=== PATIENT | male | born 1965 | race African-American/Black ===

== ENCOUNTER 2017-07-13 08:35 | Emergency (ER) | payer OTHER ==
[~2017-07-13] VITALS: Ht 167.6 cm; Wt 53.5 kg
--- NOTE | 2017-07-13 09:10 | PHYS DOC ---
General Chief Complaint: FEVER Stated Complaint: FEVER,HEADACHE Time Seen by MD: 08:40 Source: patient Exam Limitations: no limitations Problems: History of Present Illness Initial Comments Patient is a 52-year-old male brought to the ED by his daughter with fever and cough. Patient states for the past 2-3 days she's had high fevers headaches and body aches as well as a dry cough. He states that 3 in the morning his temperature was 103F and he took Motrin that's the last medication he is received. In the emergency department temperature is 100.6 patient states that he's been trying to go to work through the illness but this morning and says daughter insisted that he come in to be evaluated. Cough is described as dry set of mild sore throat no shortness of breath chest pain nausea or vomiting no headache or focal weakness no neck stiffness or rash. Timing/Duration: other Severity: severe Modifying Factors: improves with other Associated Symptoms: fever/chills, headaches Allergies: Coded Allergies: No Known Drug Allergies (Unverified , 07/13/17) Past Medical History Medical History: no pertinent history Surgical History: noncontributory Social History Smoker: non-smoker Alcohol: none Drugs: none Review of Systems Constitutional: see HPI Respiratory: denies cough, denies shortness of breath Cardiovascular: denies chest pain, denies palpitations Gastrointestinal: denies abdominal pain, denies nausea, denies vomiting Musculoskeletal: see HPI Psychiatric/Neurological: headache, denies numbness, denies paresthesia, denies weakness Physical Exam General Appearance: mild distress (ill appearing) Eyes: bilateral eye normal inspection, bilateral eye PERRL, bilateral eye EOMI Ear, Nose, Throat: hearing grossly normal, normal ENT inspection, normal pharynx Neck: non-tender, supple Respiratory: normal breath sounds, no respiratory distress Cardiovascular: normal peripheral pulses, tachycardia Gastrointestinal: non tender, soft Extremities: non-tender, normal inspection 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 I discussed [id number] prescription medications , discussed aggressive hydration and time off work or school. The patient's questions were answered to his satisfaction and he expressed agreement and understanding of treatment plan. Is advised to stop smoking Departure Time of Disposition: 10:11 Disposition: 01 HOME, SELF-CARE Diagnosis: influenza A Condition: STABLE Patient Instructions: Influenza, Adult Additional Instructions: Off work through July 17. Please review the patient education materials given by ED staff. Aggressive hydration with Gatorade or water. [id number]-oqcdbzv Tylenol, ibuprofen, and analgesic throat sprays as needed. Prescription: Tamiflu start that medication as soon as possible today Follow-up with your doctor in 5-7 days if not better. PARMJIT VALENZUELA DO Jul 13, 2017 09:10
[2017-07-13] MEDS ORDERED: ACETAMINOPHEN 500 MG TABLET PO ONE (09:30)
[2017-07-13 10:05] LABS: INFLUENZA A PATIENT POSITIVE (NEGATIVE); INFLUENZA B PATIENT NEGATIVE (NEGATIVE)
[2017-07-13] MEDS ORDERED: OSEL75CA PO (10:10)
[2017-07-13 10:45] VITALS: BP 107/73
== END 2017-07-13 10:25 | disposition home or self-care (01) ==
LOC: ER 08:35
DX: J09.X2 Influenza due to identified novel influenza A virus with other respiratory manifestations (principal)
CPT/HCPCS: 87070; 87804; 87880; 99284

== ENCOUNTER 2018-03-05 15:31 | Observation (INO) | payer OTHER ==
[~2018-03-05] VITALS: Ht 167.6 cm; Wt 55.3 kg
[~2018-03-05 15:31] MED LIST: OSEL75CA PO
[2018-03-05] MEDS ORDERED: ASPIRIN 81 MG TAB.CHEW PO ONE (15:45)
[2018-03-05] MEDS ORDERED: MORPHINE SULFATE 4 MG/ML DISP.SYRIN. IV ONE (16:00)
--- NOTE | 2018-03-05 16:11 | EKG ---
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
[2018-03-05 16:12] LABS: BASO % 0 % (0-3); EOS # 0.1 x10^3/uL (0.0-0.7); EOS % 1 % (0-3); HEMATOCRIT 48.6 % (39.0-53.0); HEMOGLOBIN 16.7 g/dL (13.0-17.5); LYMPH # 1.7 x10^3/uL (1.0-4.8); LYMPH % 19 % (24-48); MEAN CORPUSCULAR HEMOGLOBIN 38 pg (25-35); MEAN CORPUSCULAR HGB CONC 34 g/dL (31-37); MEAN CORPUSCULAR VOLUME 110 fL (79-100); MONO # 0.7 x10^3/uL (0.0-1.1); MONO % 8 % (0-9); NEUT # 6.8 x10^3uL (1.8-7.7); NEUT % 72 % (31-73); PLATELET COUNT 179 x10^3/uL (140-400); RED BLOOD COUNT 4.41 x10^6/uL (4.30-5.70); WHITE BLOOD COUNT 9.3 x10^3/uL (4.0-11.0)
--- NOTE | 2018-03-05 16:28 | RAD ---
Single view of the chest. 03/05/2018 3:38 PM Indication: PORTABLE CHEXT XRAY 1 VIEW for chest pain, heaviness in chest all day Comparison: None Findings: There is no focal consolidation. There is no pleural effusion or pneumothorax. The cardiomediastinal silhouette and pulmonary vasculature are within normal limits. No acute osseous abnormalities are seen. Impression: No evidence of acute cardiopulmonary process. Electronically signed by: Devonte Anne MD (03/05/2018 4:25 PM) [id number]
[2018-03-05 16:30] LABS: ALBUMIN 3.6 g/dL (3.4-5.0); ALBUMIN/GLOBULIN RATIO 0.9 (1.0-1.7); CALCIUM 9.3 mg/dL (8.5-10.1); GFR 95.3; POTASSIUM 3.9 mmol/L (3.5-5.1); TOTAL BILIRUBIN 0.3 mg/dL (0.2-1.0); TOTAL PROTEIN 7.5 g/dL (6.4-8.2)
--- NOTE | 2018-03-05 16:39 | PHYS DOC ---
Past History Past Medical History: No Pertinent History Past Surgical History: Appendectomy Smoking: Cigarettes Alcohol Use: Occasionally Drug Use: None Adult General Chief Complaint Chief Complaint: CHEST PAIN HPI HPI 53-year-old male presents with the 18 hour history of chest discomfort. He states that it feels heavy across his chest and radiates up into his right shoulder and neck. 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 He states he's had a similar episode in the past that was related to anxiety. He had a heart catheterization in 2016 in [place] which was negative. Currently, he states that he's had some nausea and an episode or 2 of diarrhea. All he complains about this time is chest discomfort. He denies fever chills or sweats. No cough or congestion.[] Review of Systems Review of Systems Constitutional: Denies fever or chills [] Eyes: Denies change in visual acuity, redness, or eye pain [] HENT: Denies nasal congestion or sore throat [] Respiratory: Denies cough or shortness of breath [] Cardiovascular: No additional information not addressed in HPI [] GI: Per history of present illness[] : Denies dysuria or hematuria [] Musculoskeletal: Denies back pain or joint pain [] Integument: Denies rash or skin lesions [] Neurologic: Denies headache, focal weakness or sensory changes [] Endocrine: Denies polyuria or polydipsia [] All other systems were reviewed and found to be within normal limits, except as documented in this note. Current Medications Current Medications Current Medications Medications (Trade) Dose Ordered Sig/Roya Start Time Stop Time Status Last Admin Dose Admin Aspirin (Children'S Aspirin) 324 mg 1X ONCE 03/05/18 15:45 03/05/18 15:46 DC 03/05/18 16:26 324 MG Morphine Sulfate (Morphine 4mg Syringe) 4 mg 1X ONCE 03/05/18 16:00 03/05/18 16:01 DC 03/05/18 16:26 4 MG Allergies Allergies Allergies Coded Allergies Type Severity Reaction Last Updated Verified No Known Drug Allergies 07/13/17 No Physical Exam Physical Exam Constitutional: Well developed, well nourished, no acute distress, non-toxic appearance. [] HENT: Normocephalic, atraumatic, bilateral external ears normal, oropharynx moist, no oral exudates, nose normal. [] Eyes: PERRLA, EOMI, conjunctiva normal, no discharge. [] Neck: Normal range of motion, no tenderness, supple, no stridor. [] Cardiovascular:Heart rate regular rhythm, no murmur [] Lungs & Thorax: Bilateral breath sounds clear to auscultation [] Abdomen: Bowel sounds normal, soft, no tenderness, no masses, no pulsatile masses. [] Skin: Warm, dry, no erythema, no rash. [] Back: No tenderness, no CVA tenderness. [] Extremities: No tenderness, no cyanosis, no clubbing, ROM intact, no edema. [] Neurologic: Alert and oriented X 3, normal motor function, normal sensory function, no focal deficits noted. [] Psychologic: Anxious[] Current Patient Data Vital Signs Vital Signs Date Time Temp Pulse Resp B/P (MAP) Pulse Ox O2 Delivery O2 Flow Rate FiO2 03/05/18 16:26 15 98 Room Air 03/05/18 16:10 97.9 81 Lab Results Laboratory Tests Test 03/05/18 15:55 White Blood Count 9.3 x10^3/uL (4.0-11.0) Red Blood Count 4.41 x10^6/uL (4.30-5.70) Hemoglobin 16.7 g/dL (13.0-17.5) Hematocrit 48.6 % (39.0-53.0) Mean Corpuscular Volume 110 fL (79-100) H Mean Corpuscular Hemoglobin 38 pg (25-35) H Mean Corpuscular Hemoglobin Concent 34 g/dL (31-37) Red Cell Distribution Width 13.0 % (11.5-14.5) Platelet Count 179 x10^3/uL (140-400) Neutrophils (%) (Auto) 72 % (31-73) Lymphocytes (%) (Auto) 19 % (24-48) L Monocytes (%) (Auto) 8 % (0-9) Eosinophils (%) (Auto) 1 % (0-3) Basophils (%) (Auto) 0 % (0-3) Neutrophils # (Auto) 6.8 x10^3uL (1.8-7.7) Lymphocytes # (Auto) 1.7 x10^3/uL (1.0-4.8) Monocytes # (Auto) 0.7 x10^3/uL (0.0-1.1) Eosinophils # (Auto) 0.1 x10^3/uL (0.0-0.7) Basophils # (Auto) 0.0 x10^3/uL (0.0-0.2) Sodium Level 137 mmol/L (136-145) Potassium Level 3.9 mmol/L (3.5-5.1) Chloride Level 104 mmol/L (98-107) Carbon Dioxide Level 26 mmol/L (21-32) Anion Gap 7 (6-14) Blood Urea Nitrogen 17 mg/dL (8-26) Creatinine 1.0 mg/dL (0.7-1.3) Estimated GFR (Cockcroft-Gault) 95.3 BUN/Creatinine Ratio 17 (6-20) Glucose Level 105 mg/dL (70-99) H Calcium Level 9.3 mg/dL (8.5-10.1) Total Bilirubin 0.3 mg/dL (0.2-1.0) Aspartate Amino Transferase (AST) 34 U/L (15-37) Alanine Aminotransferase (ALT) 54 U/L (16-63) Alkaline Phosphatase 93 U/L (46-116) Troponin I Quantitative < 0.017 ng/mL (0-0.055) YN-Req-V-Type Natriuretic Peptide 11 pg/mL (0-124) Total Protein 7.5 g/dL (6.4-8.2) Albumin 3.6 g/dL (3.4-5.0) Albumin/Globulin Ratio 0.9 (1.0-1.7) L EKG EKG [EKG: Normal sinus rhythm rate of 80 with some anterior J-point elevation I do not believe this is ST elevation there is no obvious ischemic ST-T changes] Radiology/Procedures Radiology/Procedures [] Impressions: PROCEDURE: CHEST AP ONLY Single view of the chest. 03/05/2018 3:38 PM Indication: PORTABLE CHEXT XRAY 1 VIEW for chest pain, heaviness in chest all day Comparison: None Findings: There is no focal consolidation. There is no pleural effusion or pneumothorax. The cardiomediastinal silhouette and pulmonary vasculature are within normal limits. No acute osseous abnormalities are seen. Impression: No evidence of acute cardiopulmonary process. Course & Med Decision Making Course & Med Decision Making Pertinent Labs and Imaging studies reviewed. (See chart for details) [ED course: Evaluation reveals a 53-year-old anxious male with some concerning symptoms. His initial troponin and EKG are unrevealing. I think he is low risk given his fairly recent negative heart catheter but I do believe he needs to be observed in the hospital to be ruled out.] Dragon Disclaimer Dragon Disclaimer This electronic medical record was generated, in whole or in part, using a voice recognition dictation system. Departure Departure: Impression: Primary Impression: Chest pain Disposition: ADMITTED INPATIENT Admitting Physician: Other (Raissa) Condition: STABLE Referrals: ABRAHAN HONG (PCP) Problem Qualifiers Primary Impression: Chest pain Chest pain type: unspecified Qualified Codes: R07.9 - Chest pain, unspecified KARL DONNELLY DO Mar 05, 2018 16:38
[2018-03-05] MEDS ORDERED: ACETAMINOPHEN 325 MG TABLET PO PRN (16:45)
[2018-03-05] MEDS ORDERED: ONDANSETRON PF 4 MG/2 ML VIAL. IV PRN (16:45)
[2018-03-05] MEDS ORDERED: NITROGLYCERIN SUBLINGUAL 0.4 MG BOTTLE OF 25. SL PRN (16:45)
[2018-03-05 16:49] LABS: PLT ESTIMATE ADEQUATE (ADEQUATE)
--- NOTE | 2018-03-05 17:30 | NUR ---
The patient, WILMAR MCCLAIN, 53 y/o, M admitted by CORETTA VALENZUELA DO, was given written information regarding hospital policies, unit procedures and contact persons. Valuables were checked and left in room. Patient alert and oriented able to make needs known. States he is continuing to have chest discomfort along with numbness to right arm. States he also had nausea today and diarrhea x2 today. This has lasted x18 hours today. Per EKG noted to have ST elevation and per tele strip noted 1-2mm ST elevation. Patient is not diaphoretic but does complain of SOA upon exerction. Next troponin noted for 1932 and 2232.
[2018-03-05] MEDS ORDERED: ASPI-630 PO (17:46)
[2018-03-05 18:17] VITALS: BP 155/95
--- NOTE | 2018-03-05 18:54 | NUR ---
Nitro stat and zofran given at this time. Patient continues to complain of chest discomfort and nausea. States chest discomfort radiates to right arm. Cardiology consulted, awaiting to hear from doctor. Vitals remain stable. Patient states pain is at a 6/10.
[2018-03-05 19:20] VITALS: BP 138/94
[2018-03-05] MEDS ORDERED: HYDROmorphone PF 1 MG/ML DISP.SYRIN IV ONE (19:45)
--- NOTE | 2018-03-05 19:50 | EKG ---
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
[2018-03-05 22:34] VITALS: BP 173/90
[2018-03-05 23:13] VITALS: BP 133/83
[2018-03-06 05:38] VITALS: BP 122/75
[2018-03-06 06:25] LABS: BASO % 1 % (0-3); EOS # 0.1 x10^3/uL (0.0-0.7); EOS % 2 % (0-3); HEMOGLOBIN 16.2 g/dL (13.0-17.5); LYMPH # 2.1 x10^3/uL (1.0-4.8); LYMPH % 32 % (24-48); MEAN CORPUSCULAR HEMOGLOBIN 38 pg (25-35); MEAN CORPUSCULAR HGB CONC 34 g/dL (31-37); MEAN CORPUSCULAR VOLUME 111 fL (79-100); MONO # 0.7 x10^3/uL (0.0-1.1); MONO % 10 % (0-9); NEUT # 3.7 x10^3uL (1.8-7.7); NEUT % 55 % (31-73); PLATELET COUNT 187 x10^3/uL (140-400); RED BLOOD COUNT 4.23 x10^6/uL (4.30-5.70); RED CELL DISTRIBUTION WIDTH 13.4 % (11.5-14.5); WHITE BLOOD COUNT 6.6 x10^3/uL (4.0-11.0)
[2018-03-06 06:30] LABS: CALCIUM 8.8 mg/dL (8.5-10.1); CREATININE 1.2 mg/dL (0.7-1.3); GFR 77.2; POTASSIUM 4.2 mmol/L (3.5-5.1)
[2018-03-06] MEDS ORDERED: METOPROLOL SUCC 24HR ER 25 MG TAB.ER.24H. PO SCH (09:30)
--- NOTE | 2018-03-06 09:31 | PDOC2 ---
CONSULT Date of Admission DATE: 03/06/18 TIME: 09:25 Reason for Consult: cp Problem List Problems Medical Problems: (1) Chest pain Status: Acute History of Present Illness Mr Bettencourt is a 53 year old male who has been generally healthy previously, presenting to the ED for evaluation of chest pain. He reports left to right chest discomfort that radiates to right neck and down right arm to index finger. He describes pressure with sharp shooting pain and electrical like shooting pain down arm to finger. He reports increase with ambulation as well as with movement of right upper extremity and neck, also with laying down. The pain was ongoing for > 3 hours. He is currently pain free. He denies any prior episodes of pain. He denies any associated dyspnea, diaphoresis, Nausea vomiting or palpitations. He does say that as pain was ongoing he felt mildly disorientated. He reports normal exercise and ability to TM for 30min without symptoms. He denies any congestive symptoms, palpitations, lightheadedness or syncope. He does report significant stressors. He denies additional complaints. Past Medical History He denies any significant past medical history and takes no home medications regularly. 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 Current Medications Current Medications Aspirin (Children'S Aspirin) 324 mg 1X ONCE PO Last administered on 03/05/18at 16:26; Start 03/05/18 at 15:45; Stop 03/05/18 at 15:46; Status DC Morphine Sulfate (Morphine 4mg Syringe) 4 mg 1X ONCE IV Last administered on at 16:26; Start 03/05/18 at 16:00; Stop 03/05/18 at 16:01; Status DC Ondansetron HCl (Zofran) 4 mg PRN Q4HRS PRN IV NAUSEA/VOMITING Last administered on 03/05/18at 18:50; Start 03/05/18 at 16:45; Stop 03/06/18 at 16:44 Fentanyl Citrate (Fentanyl 2ml Vial) 50 mcg PRN Q2HR PRN IV PAIN; Start at 16:45; Stop 03/06/18 at 16:44 Acetaminophen (Tylenol) 650 mg PRN Q4HRS PRN PO FEVER; Start 03/05/18 at 16:45 ; Stop 03/06/18 at 16:44 Nitroglycerin (Nitrostat) 0.4 mg PRN Q5MIN PRN SL CHEST PAIN Last administered on 03/05/18at 18:50; Start 03/05/18 at 16:45; Stop 03/06/18 at 16:44 Hydromorphone HCl (Dilaudid) 1 mg 1X ONCE IV Last administered on 03/05/18at 20 :08; Start 03/05/18 at 19:45; Stop 03/05/18 at 19:46; Status DC Active Scripts Active Reported Aspirin 81 Mg Tab.chew 81 Mg PO DAILY Allergies: Coded Allergies: No Known Drug Allergies (Unverified , 07/13/17) Review of System as per HPI or negative General: Alert, Oriented X3, Cooperative, No acute distress HEENT: Atraumatic, EOMI, Mucous membr. moist/pink Lungs: Clear to auscultation, Normal air movement Heart: Regular rate, Normal S1, Normal S2, No murmurs Abdomen: Normal bowel sounds, Soft, No tenderness Extremities: No cyanosis, No edema, Normal pulses Skin: No rashes, No breakdown, No significant lesion Neuro: Normal speech, Strength at 5/5 X4 ext Psych/Mental Status: Mental status NL, Mood NL VITALS Vital Signs Date Time Temp Pulse Resp B/P (MAP) Pulse Ox O2 Delivery O2 Flow Rate FiO2 03/06/18 05:38 98.0 76 20 122/75 (91) 98 Room Air Labs Laboratory Tests Test 03/05/18 15:55 03/05/18 19:30 03/05/18 22:00 03/06/18 05:51 White Blood Count 9.3 x10^3/uL (4.0-11.0) 6.6 x10^3/uL (4.0-11.0) Red Blood Count 4.41 x10^6/uL (4.30-5.70) 4.23 x10^6/uL (4.30-5.70) Hemoglobin 16.7 g/dL (13.0-17.5) 16.2 g/dL (13.0-17.5) Hematocrit 48.6 % (39.0-53.0) 47.0 % (39.0-53.0) Mean Corpuscular Volume 110 fL (79-100) 111 fL (79-100) Mean Corpuscular Hemoglobin 38 pg (25-35) 38 pg (25-35) Mean Corpuscular Hemoglobin Concent 34 g/dL (31-37) 34 g/dL (31-37) Red Cell Distribution Width 13.0 % (11.5-14.5) 13.4 % (11.5-14.5) Platelet Count 179 x10^3/uL (140-400) 187 x10^3/uL (140-400) Neutrophils (%) (Auto) 72 % (31-73) 55 % (31-73) Lymphocytes (%) (Auto) 19 % (24-48) 32 % (24-48) Monocytes (%) (Auto) 8 % (0-9) 10 % (0-9) Eosinophils (%) (Auto) 1 % (0-3) 2 % (0-3) Basophils (%) (Auto) 0 % (0-3) 1 % (0-3) Neutrophils # (Auto) 6.8 x10^3uL (1.8-7.7) 3.7 x10^3uL (1.8-7.7) Lymphocytes # (Auto) 1.7 x10^3/uL (1.0-4.8) 2.1 x10^3/uL (1.0-4.8) Monocytes # (Auto) 0.7 x10^3/uL (0.0-1.1) 0.7 x10^3/uL (0.0-1.1) Eosinophils # (Auto) 0.1 x10^3/uL (0.0-0.7) 0.1 x10^3/uL (0.0-0.7) Basophils # (Auto) 0.0 x10^3/uL (0.0-0.2) 0.0 x10^3/uL (0.0-0.2) Platelet Estimate Adequate (ADEQUATE) Macrocytosis Slight Prothrombin Time 9.9 SEC (9.4-11.4) Prothromb Time International Ratio 1.0 (0.9-1.1) Activated Partial Thromboplast Time 25 SEC (23-33) Sodium Level 137 mmol/L (136-145) 137 mmol/L (136-145) Potassium Level 3.9 mmol/L (3.5-5.1) 4.2 mmol/L (3.5-5.1) Chloride Level 104 mmol/L (98-107) 102 mmol/L (98-107) Carbon Dioxide Level 26 mmol/L (21-32) 32 mmol/L (21-32) Anion Gap 7 (6-14) 3 (6-14) Blood Urea Nitrogen 17 mg/dL (8-26) 13 mg/dL (8-26) Creatinine 1.0 mg/dL (0.7-1.3) 1.2 mg/dL (0.7-1.3) Estimated GFR (Cockcroft-Gault) 95.3 77.2 BUN/Creatinine Ratio 17 (6-20) Glucose Level 105 mg/dL (70-99) 85 mg/dL (70-99) Calcium Level 9.3 mg/dL (8.5-10.1) 8.8 mg/dL (8.5-10.1) Total Bilirubin 0.3 mg/dL (0.2-1.0) Aspartate Amino Transf (AST/SGOT) 34 U/L (15-37) Alanine Aminotransferase (ALT/SGPT) 54 U/L (16-63) Alkaline Phosphatase 93 U/L (46-116) Troponin I Quantitative < 0.017 ng/mL (0-0.055) < 0.017 ng/mL (0-0.055) < 0.017 ng/mL (0-0.055) XR-Tgm-F-Type Natriuretic Peptide 11 pg/mL (0-124) Total Protein 7.5 g/dL (6.4-8.2) Albumin 3.6 g/dL (3.4-5.0) Albumin/Globulin Ratio 0.9 (1.0-1.7) Images EKG - sinus rhythm with non specific st/t changes CXR -no acute abn Assessment/Plan 1. CP, atypical - SD ruled out. non specific EKG changes. suggest ambulate, aspirin, beta jorge, check lipids and echo. If no significant abnormalities could discharge and consider schedule for outpatient MPI. 2. HTN - antihypertensives as above. could consider change to Norvasc if no abn on echo and no recurrent chest pain. 3. unk lipid status - check lipids and add statin if indicated. 4. tobaccoism - cessation suggested. ROCCO MICHAEL FORM MAKER Mar 06, 2018 09:31
--- NOTE | 2018-03-06 09:46 | NUR ---
Pt is alert and oriented x4. States chest pain is better. Pt SR on tele. Pt sleepy but wakes easily. Will continue to monitor.
[2018-03-06 10:28] VITALS: BP 126/78
--- NOTE | 2018-03-06 13:32 | PDOC1 ---
History of Present Illness Reason for Visit: chest pain History of Present Illness The 53-year-old male presented to the emergency department yesterday with an 18 hour history of chest pain. Chest pain reportedly radiated to the right shoulder and jaw accompanied by some shortness of breath, patient describes as if someone sitting on his chest. Pain rated at 10 on a scale no improvement with nitroglycerin. His EKG was normal sinus rhythm at 80 bpm with some anterior J-point elevation, chest x-ray was negative for acute process. Initial ED labs were reassuring but due to the severity of the patient's symptoms he was admitted for observation and serial cardiac enzymes and cardiology evaluation. I find the patient resting comfortably reclining in bed watching television. He reports that he is feeling 100% better, only a small hint of the chest discomfort now with coughs or deep breaths. He reports that he had similar symptoms 2 years ago while going through divorce, heart catheterization was negative at that time and symptoms possibly attributed to anxiety. He says he has been very stressed trying to finish painting a car at work. Says he wouldn' t come for evaluation of his daughters hadn't insisted. Patient's cardiac enzymes have been negative 3, cardiology has evaluated him and echocardiogram is pending. 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 See HPI for pertinent positives and negative responses, other rojas all other systems are negative, non pertinent or non contributory Constitutional: No: Fever, Weakness Eyes: No: Blurry vision, Eye Pain ENT: No: Ear pain, Nose congestion Respiratory: YES: Shortness of breath; No: Cough, SOB with excertion, Wheezing Cardiovascular: yes: Chest Pain; No: Orthopnea, Paroxysmal Noc. Dyspnea, Edema Gastrointestinal: No: Vomiting, Abdominal Pain, Constipation Musculoskeletal: No: Gait Disturbance, Joint Pain, Joint Stiffness Neurological: No: Headaches, Memory Loss, Numbness/Tingling, Seizures Medications Current Medications Aspirin (Children'S Aspirin) 324 mg 1X ONCE PO Last administered on 03/05/18at 16:26; Start 03/05/18 at 15:45; Stop 03/05/18 at 15:46; Status DC Morphine Sulfate (Morphine 4mg Syringe) 4 mg 1X ONCE IV Last administered on at 16:26; Start 03/05/18 at 16:00; Stop 03/05/18 at 16:01; Status DC Ondansetron HCl (Zofran) 4 mg PRN Q4HRS PRN IV NAUSEA/VOMITING Last administered on 03/05/18at 18:50; Start 03/05/18 at 16:45; Stop 03/06/18 at 16:44 Fentanyl Citrate (Fentanyl 2ml Vial) 50 mcg PRN Q2HR PRN IV PAIN; Start at 16:45; Stop 03/06/18 at 16:44 Acetaminophen (Tylenol) 650 mg PRN Q4HRS PRN PO FEVER; Start 03/05/18 at 16:45 ; Stop 03/06/18 at 16:44 Nitroglycerin (Nitrostat) 0.4 mg PRN Q5MIN PRN SL CHEST PAIN Last administered on 03/05/18at 18:50; Start 03/05/18 at 16:45; Stop 03/06/18 at 16:44 Hydromorphone HCl (Dilaudid) 1 mg 1X ONCE IV Last administered on 03/05/18at 20 :08; Start 03/05/18 at 19:45; Stop 03/05/18 at 19:46; Status DC Metoprolol Succinate (Toprol Xl) 25 mg DAILY PO Last administered on 03/06/18at 10:10; Start 03/06/18 at 09:30 Aspirin (Aspirin Enteric Coated) 81 mg DAILYWBKFT PO ; Start 03/07/18 at 08:00 Active Scripts Active Reported Aspirin 81 Mg Tab.chew 81 Mg PO DAILY Exam Vital Signs Vital Signs Date Time Temp Pulse Resp B/P (MAP) Pulse Ox O2 Delivery O2 Flow Rate FiO2 03/06/18 10:28 97.9 87 20 126/78 (94) 98 Room Air General Appearance: Alert, Oriented X3, No acute distress HEENT: Atraumatic, PERRLA, EOMI, Mucous membr. moist/pink Respiratory: Clear to auscultation, Normal air movement, Other (chest pain symptoms are reproducible with AP compression of the chest) Heart: Regular rate, No murmurs Abdominal: Normal bowel sounds, Soft, No tenderness Extremities: No clubbing, No cyanosis, No edema Neuro: Normal gait, Normal tone, Cranial nerves 3-12 NL Psych/Mental Status: Mental status NL, Mood NL Assessment/Plan Assessment/Plan Chest wall pain: Likely an anxiety component as well Tobaccoism: Recommend stop smoking Hypertension: Pressures normalized on Toprol-XL 25 mg Follow-up with Travon You this week for recheck and to schedule outpatient stress test as recommended by cardiology. COURSE Allergies Coded Allergies Type Severity Reaction Last Updated Verified No Known Drug Allergies 07/13/17 No Laboratory Tests Test 03/05/18 15:55 03/05/18 19:30 03/05/18 22:00 03/06/18 05:51 White Blood Count 9.3 x10^3/uL (4.0-11.0) 6.6 x10^3/uL (4.0-11.0) Red Blood Count 4.41 x10^6/uL (4.30-5.70) 4.23 x10^6/uL (4.30-5.70) Hemoglobin 16.7 g/dL (13.0-17.5) 16.2 g/dL (13.0-17.5) Hematocrit 48.6 % (39.0-53.0) 47.0 % (39.0-53.0) Mean Corpuscular Volume 110 fL (79-100) 111 fL (79-100) Mean Corpuscular Hemoglobin 38 pg (25-35) 38 pg (25-35) Mean Corpuscular Hemoglobin Concent 34 g/dL (31-37) 34 g/dL (31-37) Red Cell Distribution Width 13.0 % (11.5-14.5) 13.4 % (11.5-14.5) Platelet Count 179 x10^3/uL (140-400) 187 x10^3/uL (140-400) Neutrophils (%) (Auto) 72 % (31-73) 55 % (31-73) Lymphocytes (%) (Auto) 19 % (24-48) 32 % (24-48) Monocytes (%) (Auto) 8 % (0-9) 10 % (0-9) Eosinophils (%) (Auto) 1 % (0-3) 2 % (0-3) Basophils (%) (Auto) 0 % (0-3) 1 % (0-3) Neutrophils # (Auto) 6.8 x10^3uL (1.8-7.7) 3.7 x10^3uL (1.8-7.7) Lymphocytes # (Auto) 1.7 x10^3/uL (1.0-4.8) 2.1 x10^3/uL (1.0-4.8) Monocytes # (Auto) 0.7 x10^3/uL (0.0-1.1) 0.7 x10^3/uL (0.0-1.1) Eosinophils # (Auto) 0.1 x10^3/uL (0.0-0.7) 0.1 x10^3/uL (0.0-0.7) Basophils # (Auto) 0.0 x10^3/uL (0.0-0.2) 0.0 x10^3/uL (0.0-0.2) Platelet Estimate Adequate (ADEQUATE) Macrocytosis Slight Prothrombin Time 9.9 SEC (9.4-11.4) Prothromb Time International Ratio 1.0 (0.9-1.1) Activated Partial Thromboplast Time 25 SEC (23-33) Sodium Level 137 mmol/L (136-145) 137 mmol/L (136-145) Potassium Level 3.9 mmol/L (3.5-5.1) 4.2 mmol/L (3.5-5.1) Chloride Level 104 mmol/L (98-107) 102 mmol/L (98-107) Carbon Dioxide Level 26 mmol/L (21-32) 32 mmol/L (21-32) Anion Gap 7 (6-14) 3 (6-14) Blood Urea Nitrogen 17 mg/dL (8-26) 13 mg/dL (8-26) Creatinine 1.0 mg/dL (0.7-1.3) 1.2 mg/dL (0.7-1.3) Estimated GFR (Cockcroft-Gault) 95.3 77.2 BUN/Creatinine Ratio 17 (6-20) Glucose Level 105 mg/dL (70-99) 85 mg/dL (70-99) Calcium Level 9.3 mg/dL (8.5-10.1) 8.8 mg/dL (8.5-10.1) Total Bilirubin 0.3 mg/dL (0.2-1.0) Aspartate Amino Transf (AST/SGOT) 34 U/L (15-37) Alanine Aminotransferase (ALT/SGPT) 54 U/L (16-63) Alkaline Phosphatase 93 U/L (46-116) Troponin I Quantitative < 0.017 ng/mL (0-0.055) < 0.017 ng/mL (0-0.055) < 0.017 ng/mL (0-0.055) OS-Jfg-M-Type Natriuretic Peptide 11 pg/mL (0-124) Total Protein 7.5 g/dL (6.4-8.2) Albumin 3.6 g/dL (3.4-5.0) Albumin/Globulin Ratio 0.9 (1.0-1.7) Current Medications Medications (Trade) Dose Ordered Sig/Roya Route PRN Reason Start Time Stop Time Status Last Admin Dose Admin Aspirin (Children'S Aspirin) 324 mg 1X ONCE PO 03/05/18 15:45 03/05/18 15:46 DC 03/05/18 16:26 Morphine Sulfate (Morphine 4mg Syringe) 4 mg 1X ONCE IV 03/05/18 16:00 03/05/18 16:01 DC 03/05/18 16:26 Ondansetron HCl (Zofran) 4 mg PRN Q4HRS PRN IV NAUSEA/VOMITING 03/05/18 16:45 03/06/18 16:44 03/05/18 18:50 Fentanyl Citrate (Fentanyl 2ml Vial) 50 mcg PRN Q2HR PRN IV PAIN 03/05/18 16:45 03/06/18 16:44 Acetaminophen (Tylenol) 650 mg PRN Q4HRS PRN PO FEVER 03/05/18 16:45 03/06/18 16:44 Nitroglycerin (Nitrostat) 0.4 mg PRN Q5MIN PRN SL CHEST PAIN 03/05/18 16:45 03/06/18 16:44 03/05/18 18:50 Hydromorphone HCl (Dilaudid) 1 mg 1X ONCE IV 03/05/18 19:45 03/05/18 19:46 DC 03/05/18 20:08 Metoprolol Succinate (Toprol Xl) 25 mg DAILY PO 03/06/18 09:30 03/06/18 10:10 Aspirin (Aspirin Enteric Coated) 81 mg DAILYWBKFT PO 03/07/18 08:00 Orders Procedure Category Date Status Time Aspirin (Children's PHA 03/05/18 Complete Aspirin) 15:45 Saline Lock ER 03/05/18 Transmitted 15:36 12 Lead Ekg EKG 03/05/18 Resulted 15:36 Chest Ap Only RAD 03/05/18 Resulted 15:36 Cbc W [employer]od[employer] LAB 03/05/18 Complete 15:36 Comprehensive LAB 03/05/18 Complete Metabolic Panel 15:36 Troponin I LAB 03/05/18 Complete 15:36 Nt-Pro Bnp LAB 03/05/18 Complete 15:36 Morphine Sulfate PHA 03/05/18 Complete (Morphine 4mg Syringe) 16:00 Code Status CODE 03/05/18 Transmitted 16:33 Vital Signs, Per [facility] 03/05/18 In Process Protocol 16:33 Advance Diet As [facility] 03/05/18 In Process Tolerated 16:33 Ambulate Ad Adela [facility] 03/05/18 In Process 16:33 Ondansetron Pf [facility] 03/05/18 In Process (Zofran) 16:45 Fentanyl Pf (Fentanyl [facility] 03/05/18 In Process 2ml Vial) 16:45 Acetaminophen PHA 03/05/18 In Process (Tylenol) 16:45 Nitroglycerin PHA 03/05/18 In Process Sublingual (Nitrostat) 16:45 [place] Order ADT 03/05/18 Transmitted 17:27 Echocardiogram ECHO 03/05/18 Logged 17:31 Consult Physician By CONS 03/05/18 Transmitted Name 17:31 Apply Stalin Stockings [facility] 03/05/18 In Process And Vamshi Wr 17:52 Pneumatic Compression [facility] 03/05/18 In Process Device 17:52 Troponin I LAB 03/05/18 Complete 19:33 Troponin I LAB 03/05/18 Complete 22:33 12 Lead Ekg EKG 03/05/18 Complete 19:30 Hydromorphone Pf PHA 03/05/18 Complete (Dilaudid) 19:45 Protime LAB 03/05/18 Complete 20:18 Partial LAB 03/05/18 Complete Thromboplastin Time 20:18 Cbc W [employer]odiff LAB 03/06/18 Complete 05:00 Basic Metabolic Panel LAB 03/06/18 Complete 05:00 Metoprolol Succ 24hr PHA 03/06/18 In Process Er (Toprol Xl) 09:30 Lipid Panel LAB 03/06/18 In Process 09:27 Aspirin Enteric PHA 03/07/18 In Process Coated (Aspirin 08:00 Cardiac DIET 03/06/18 Transmitted Lunch Admit Orders ADT 03/06/18 Transmitted 13:26 Vital Signs Date Time Temp Pulse Resp B/P (MAP) Pulse Ox O2 Delivery O2 Flow Rate FiO2 03/06/18 10:28 97.9 87 20 126/78 (94) 98 Room Air CORETTA VALENZUELA DO Mar 06, 2018 13:32
[2018-03-06 15:00] VITALS: BP 128/79
[2018-03-06] MEDS ORDERED: METO25TA2 PO ×2 (15:29→15:30)
--- NOTE | 2018-03-06 15:39 | NUR ---
Pt is discharging, agrees with discharge plan. IV out and tele off. Script for metoprolol given to patient.
--- NOTE | 2018-03-06 16:13 | CARD ---
MR#: [id number] Date of Study: 03/06/2018 Ordering Physician: CORETTA VALENZUELA, Referring Physician: CORETTA VALENZUELA, Tech: MOHIT Avendano APPROVED REPORT EXAM: Two-dimensional and M-mode echocardiogram with Doppler and color Doppler. Other Information Quality : AverageHR: 72bpm INDICATION LV Function:Systolic 2D DIMENSIONS Left Atrium(2D)2.5 (1.6-4.0cm)IVSd0.9 (0.7-1.1cm) Aortic Root(2D)2.4 (2.0-3.7cm)LVDd4.4 (3.9-5.9cm) LVOT Diameter1.9 (1.8-2.4cm)PWd1.0 (0.7-1.1cm) LVDs2.5 (2.5-4.0cm)FS (%) 42.9 % SV66.2 mlLVEF(%)74.2 (>50%) Aortic Valve AoV Peak Jose.128.4cm/sAoV VTI24.6cm AO Peak GR.6.6mmHgLVOT Peak Jose.102.2cm/s LVOT VTI 18.73cmAO Mean GR.4mmHg HALINA (VMAX)2.08en6BOR (VTI)2.22cm2 Mitral Valve MV E Ukpokxta44.3cm/sMV DECEL ZNSE561ve MV A Rspwrxrs63.2cm/sE/A Ratio1.4 Pulmonary Valve PV Peak Mbzwtfha669.6cm/sPV Peak Grad.5mmHg Tricuspid Valve TR P. Kdxslmkz299dq/sRAP MNTLGHCF1gjBe TR Peak Gr.26pfCpXPMQ28zgJk Pulmonary Vein S1 Wacgthfb88.1cm/sD2 Fcwktcfg93.5cm/s LEFT VENTRICLE The left ventricle is normal size. There is normal left ventricular wall thickness. The left ventricu lar systolic function is normal. The ejection fraction is estimated at 65%. There is normal LV segmen amy wall motion. The left ventricular diastolic function and filling is normal for age. RIGHT VENTRICLE The right ventricle is normal size. There is normal right ventricular wall thickness. The right ventr icular systolic function is normal. ATRIA The left atrium size is normal. The right atrium size is normal. The interatrial septum is intact wit h no evidence for an atrial septal defect or patent foramen ovale as noted on 2-D or Doppler imaging. AORTIC VALVE The aortic valve is thickened but opens well. Doppler and Color Flow revealed no significant aortic r egurgitation. There is no significant aortic valvular stenosis. There is no aortic valvular vegetatio n. MITRAL VALVE The mitral valve is thickened but opens well. There is no evidence of mitral valve prolapse. There is no mitral valve stenosis. Doppler and Color Flow revealed no mitral valve regurgitation noted. TRICUSPID VALVE The tricuspid valve leaflets are thickened , but open well. Doppler and Color Flow revealed mild tric uspid regurgitation. The PA pressure was estimated at 27 mmHg. There is no tricuspid valve prolapse o r vegetation. There is no tricuspid valve stenosis. PULMONIC VALVE The pulmonic valve is not well visualized. Doppler and Color Flow revealed no pulmonic valvular regur gitation. There is no pulmonic valvular stenosis. GREAT VESSELS The aortic root is normal in size. The IVC is normal in size and collapses >50% with inspiration. PERICARDIAL EFFUSION There is no pleural effusion. There is no evidence of significant pericardial effusion. Critical Notification Critical Value: No <Conclusion> The left ventricular systolic function is normal. The ejection fraction is estimated at 65%. There is normal LV segmental wall motion. Mild tricuspid regurgitation. The PA pressure was estimated at 27 mmHg. There is no evidence of significant pericardial effusion. Signed by : John Chilel, Electronically Approved : 03/06/2018 16:11:45
[2018-03-07] MEDS ORDERED: ASPIRIN ENTERIC COATED 81 MG TABLET.DR. PO SCH (08:00)
== END 2018-03-06 15:52 | disposition home or self-care (01) ==
LOC: ER 15:31 → INTOOBSV 16:30 → 1 SOUTH 16:30 → ER 17:50
PROVIDERS: ADMIT Neuromusculoskeletal Medicine & OMM; ATTEND Neuromusculoskeletal Medicine & OMM
DX: R07.89 Other chest pain (principal); I10 Essential (primary) hypertension; F17.210 Nicotine dependence, cigarettes, uncomplicated; F41.9 Anxiety disorder, unspecified; Z90.49 Acquired absence of other specified parts of digestive tract
CPT/HCPCS: 36415; 71045; 80048; 80053; 80061; 83880; 84484; 85025; 85610; 85730; 93005; 93306; 96374; 96375; 99285; G0378; J1170; J2270; J2405; G0379

== ENCOUNTER → 2018-09-20 | Outpatient (CLI) | payer OTHER ==
[~2018-09-20] MED LIST changes: +ASPI-630 PO; +METO25TA2 PO
--- NOTE | 2018-09-20 10:43 | RAD ---
EXAM: Left knee, 2 views. HISTORY: Pain. COMPARISON: None. FINDINGS: 2 views left knee are obtained. There is mild medial compartment joint space narrowing and spurring. There is also mild patellar spurring. There is a suspected trace joint effusion. There is no fracture, dislocation or subluxation. IMPRESSION: 1. Mild medial and minimal patellofemoral compartment osteoarthritis of the left knee with suspected trace joint effusion. 2. No acute osseous finding. Electronically signed by: Yessica Neal MD (09/20/2018 10:40 AM) [facility]
== END | disposition home or self-care (01) ==
LOC: RAD 10:09
PROVIDERS: ATTEND Physician Assistant
DX: M17.12 Unilateral primary osteoarthritis, left knee (principal); M76.892 Other specified enthesopathies of left lower limb, excluding foot
CPT/HCPCS: 73560

== ENCOUNTER → 2018-09-27 | Outpatient (CLI) | payer OTHER ==
--- NOTE | 2018-09-27 12:26 | RAD ---
Left thumb, 2 views, 09/27/2018: HISTORY: Injury. A tiny calcific density along the volar aspect of the IP joint is most likely due to old trauma. A recent tiny avulsion fractures less likely. No definite acute fracture or dislocation is identified. There is mild degenerative change at the MCP and CMC joints. IMPRESSION: No acute bony abnormality is detected. Electronically signed by: Saurav Lopez MD (09/27/2018 12:23 PM) [facility]
== END | disposition home or self-care (01) ==
LOC: PMG 08:56
PROVIDERS: ATTEND Physician Assistant
DX: M19.042 Primary osteoarthritis, left hand (principal)
CPT/HCPCS: 73140

== ENCOUNTER → 2018-12-18 | Outpatient (CLI) | payer OTHER ==
--- NOTE | 2018-12-18 16:40 | RAD ---
Examination: 2 views of the right elbow HISTORY: History of right elbow. COMPARISON: None available FINDINGS: The alignment of the elbow joint grossly appears unremarkable. Large enthesophyte identified arising from the coronoid process of the ulna. Probable small elbow joint effusion. IMPRESSION: 1. Large ulnar enthesophyte. Moderate degenerative changes elbow joint. Electronically signed by: Amor Magallanes MD (12/18/2018 4:37 PM) [id number]
== END | disposition home or self-care (01) ==
LOC: PMG 12:02
PROVIDERS: ATTEND Physician Assistant
DX: M19.021 Primary osteoarthritis, right elbow (principal); M77.8 Other enthesopathies, not elsewhere classified
CPT/HCPCS: 73070

== ENCOUNTER → 2019-01-16 | Outpatient (CLI) | payer OTHER ==
--- NOTE | 2019-01-16 17:25 | RAD ---
SHOULDER 2+V LEFT History: Left shoulder pain. FINDINGS: No prior study for comparison. Mild bone hypertrophy at the greater tuberosity. No evidence of acute fracture or bone destruction. IMPRESSION: No acute radiographic findings. Electronically signed by: Navid Borjas MD (01/16/2019 5:22 PM) [facility]
== END | disposition home or self-care (01) ==
LOC: PMG 14:24
PROVIDERS: ATTEND Physician Assistant
DX: M89.312 Hypertrophy of bone, left shoulder (principal)
CPT/HCPCS: 73030

== ENCOUNTER → 2019-01-22 | Outpatient (CLI) | payer MEDICAID ==
--- NOTE | 2019-01-22 10:47 | RAD ---
Study: ELBOW RIGHT 2V Indication: Right elbow pain. Comparison: 12/18/2018 Findings: AP and lateral radiographic views of the right elbow. No acute fracture, traumatic malalignment or large elbow joint effusion identified. Degenerative changes seen at the elbow to include osteophytosis at the radial head, ulnotrochlear articulation and coronoid process. Intra-articular loose bodies. Normal osseous mineralization. Unremarkable soft tissues. 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 No acute fracture. Potential small effusion, likely degenerative. Electronically signed by: WILMAR WATSON MD (01/22/2019 10:44 AM) [id number]
== END | disposition home or self-care (01) ==
LOC: DXRAD 10:21
PROVIDERS: ATTEND Orthopaedic Surgery Sports Medicine
DX: M19.021 Primary osteoarthritis, right elbow (principal); M25.721 Osteophyte, right elbow; M24.021 Loose body in right elbow
CPT/HCPCS: 73070

== ENCOUNTER → 2021-02-24 | Outpatient (CLI) | payer MEDICAID ==
--- NOTE | 2021-02-24 11:16 | RAD ---
EXAM: Left shoulder, 3 views. HISTORY: Pain. COMPARISON: None. FINDINGS: 3 views of the left shoulder obtained. There is glenohumeral joint space narrowing with sub chondral sclerosis and bony remodeling. There is a tiny ossicle superior to the humeral head likely d ue to a joint loose body. The acromioclavicular joint is intact. IMPRESSION: Mild to moderate glenohumeral osteoarthritis with suspected joint loose body. Electronically signed by: Yessica Neal MD (02/24/2021 11:14 AM) [id number]
== END ==
LOC: RAD 10:34
PROVIDERS: ATTEND Physician Assistant
DX: M19.012 Primary osteoarthritis, left shoulder (principal); M25.812 Other specified joint disorders, left shoulder
CPT/HCPCS: 73030